=== PATIENT | female | born 1965 | race Caucasian/White ===

== ENCOUNTER 2023-10-29 16:23 | Emergency (ER) | payer BC ==
[~2023-10-29] VITALS: Ht 172.7 cm; Wt 109.8 kg
[2023-10-29 16:32] VITALS: TEMP 97.9
[2023-10-29 17:01] LABS: BILIRUBIN,URINE NEGATIVE (Neg); CLARITY,URINE SLIGHTLY CLOUDY (Clear); COLOR,URINE YELLOW (Yellow); GLUCOSE, URINE NEGATIVE (Neg); KETONES,URINE TRACE mg/dl (Neg); LEUKOCYTE ESTERASE ,URINE NEGATIVE (Neg); NITRITES, URINE NEGATIVE (Neg); OCCULT BLOOD,URINE NEGATIVE (Neg); PH,URINE 5.5 (4.8-8.0); PROTEIN,URINE NEGATIVE (Neg); UROBILINOGEN,URINE 0.2 E.U/dL (0.2-1.0)
[2023-10-29 17:02] LABS: UA COLLECTION TYPE CLN CATCH MIDSTREAM
[2023-10-29 17:06] LABS: SQUAMOUS EPITHELIAL CELL,UR FEW /LPF (FEW)
[2023-10-29 17:07] LABS: BACTERIA,URINE FEW /HPF (Neg); RBC,URINE 0-2 /HPF (0-2); URINE HCG NEGATIVE (NEG); WBC,URINE 0-4 /HPF (0-4)
[2023-10-29 17:29] LABS: BASOPHILS # (AUTO) 0.1 X10'3 (0-0.2); BASOPHILS % (AUTO) 1.2 % (0-1); EOSINOPHILS # (AUTO) 0.2 X10'3 (0-0.9); EOSINOPHILS % (AUTO) 2.5 % (0-6); HEMATOCRIT 43.1 % (35.0-45.0); HEMOGLOBIN 14.7 g/dl (12.0-16.0); LYMPHOCYTES # (AUTO) 2.7 X10'3 (1.1-4.8); LYMPHOCYTES % (AUTO) 34.8 % (21-51); MEAN CORPUSCULAR HEMOGLOBIN 30.2 PG (27.0-31.0); MEAN CORPUSCULAR HGB CONC 34.1 g/dL (33.0-36.5); MEAN CORPUSCULAR VOLUME 88.5 FL (78-98); MEAN PLATELET VOLUME 8.3 FL (7.4-10.4); MONOCYTES # (AUTO) 0.6 X10'3 (0-0.9); MONOCYTES % (AUTO) 7.4 % (2-12); NEUTROPHILS # (AUTO) 4.2 X10'3 (1.8-7.7); NEUTROPHILS % (AUTO) 54.1 % (42-75); PLATELET COUNT 239 X10'3 (140-440); RED BLOOD COUNT 4.87 X10'6 (4.20-5.60); RED CELL DISTRIBUTION WIDTH 14.1 % (11.5-14.5); WHITE BLOOD COUNT 7.8 X10'3 (4.5-11.0)
[2023-10-29 17:42] LABS: ALANINE AMINOTRANSFERASE 61 U/L (12-78); ALBUMIN 3.8 G/DL (3.4-5.0); ALBUMIN/GLOBULIN RATIO 1.2 (1.1-1.5); ALKALINE PHOSPHATASE 79 IU/L (46-116); ANION GAP 12 (8-16); ASPARTATE AMINO TRANSFERASE 25 U/L (10-37); BILIRUBIN,TOTAL 0.3 MG/DL (0.1-1.0); BLOOD UREA NITROGEN 24 MG/DL (7-18); BUN/CREATININE RATIO 27.9 (10.0-20.0); CHLORIDE 106 MMOL/L (99-107); CREATININE 0.86 MG/DL (0.40-0.90); GLUCOSE 94 MG/DL (70-104); LIPASE 85 U/L (16-77); POTASSIUM 4.1 MMOL/L (3.5-5.1); SODIUM 142 MMOL/L (135-145); TOTAL CARBON DIOXIDE 24.5 MMOL/L (24-32); TOTAL PROTEIN 7.1 G/DL (6.4-8.2); eCRCL 71 ML/MIN; eGFR 68 ML/MIN
[2023-10-29] MEDS ORDERED: LIDO700A32 TOP (18:21)
[2023-10-29] MEDS ORDERED: MELO-100 PO (18:21)
[2023-10-29] MEDS: ketorolac trometh inj. 60 MG/2 ML VIAL IM ONE (19:03)
[2023-10-29 19:23] VITALS: BP 146/85; PULSE 76; RESP 18; O2SAT 93
== END 2023-10-29 19:25 | disposition home or self-care (01) ==
LOC: ER 16:23
DX: M54.59 Other low back pain (principal)
CPT/HCPCS: 36415; 80053; 81001; 81025; 83690; 85025; 96372; 99283; J1885

== ENCOUNTER 2023-10-30 08:00 | Emergency (ER) | payer BC ==
[~2023-10-30] VITALS: Ht 172.7 cm; Wt 108.2 kg
[~2023-10-30 08:00] MED LIST: LIDO700A32 TOP; MELO-100 PO
[2023-10-30 08:38] VITALS: BP 143/64; PULSE 75; RESP 16; TEMP 98.3; O2SAT 98
== END 2023-10-30 08:39 | disposition home or self-care (01) ==
LOC: ER 08:01
DX: S39.012A Strain of muscle, fascia and tendon of lower back, initial encounter (principal); G89.29 Other chronic pain; M54.9 Dorsalgia, unspecified; Z88.5 Allergy status to narcotic agent; Z79.899 Other long term (current) drug therapy; X58.XXXA Exposure to other specified factors, initial encounter; Y93.89 Activity, other specified; Y92.89 Other specified places as the place of occurrence of the external cause; Y99.8 Other external cause status
CPT/HCPCS: 99281

== ENCOUNTER 2025-03-14 09:09 | Emergency (ER) | payer BC ==
[~2025-03-14] VITALS: Ht 170.2 cm; Wt 109.7 kg
[~2025-03-14 09:09] MED LIST changes: +LIDO-52 TOP; -LIDO700A32 TOP
--- NOTE | 2025-03-14 09:21 | Physician Documentation ---
History of Present Illness ~ Chief Complaint: Arm Pain Stated Complaint: L ARM NUMBNESS Time Seen by MD: 09:24 HPI 59-year-old female with no medical history other than pre diabetes presents to the emergency department reporting that she woke up with left arm pain that yaneli ears to originate of the shoulder in his radiating down the arm. Does admit to some shortness of breath, but notes that she is anxious. Family history of coronary artery disease including heart attack and mother and grandmother. No recent injury to the left arm or shoulder. Pain is reproducible, worse with movement. PATIENT DOES DESCRIBE SOME SHORTNESS A BREATH. Chief Complaint: Left scapula pain Caveat: None Independent Historians: None History of Present Illness: Patient is a 59-year-old woman who comes in complaining of left scapular pain that woke her from sleep at 6:00 a.m.. Pain is sharp. Pain is worse with movement. No chest pain. No pain in the shoulder. Patient has tingling in the left fingers. Pain is currently 6/10. Patient has some pain that radiates down the left paraspinal muscles. Review of systems: All systems were reviewed and are negative except for what is indicated in the history of present illness. Past Medical History: Past Surgical History: Noncontributory Social History: Former smoker quit 10 years ago, no alcohol use, no drug use Medications: Reviewed as documented Nursing Notes Allergies: Reviewed as documented in Nursing Notes Tetanus within 5 years: No Medication Reconciliation Allergies: Coded Allergies: codeine (Verified Allergy, Mild, 03/14/25) Uncoded Allergies: CLAM (Allergy, Unknown, 10/29/23) Scheduled Lidocaine (Lidoderm), 1 PATCH TOP DAILY Meloxicam* (Meloxicam*), 1 TAB PO DAILY Past Medical History Past Medical History: Chronic Back Pain Past Surgical History: noncontributory Lives In: Home Review of Systems ROS As stated above in the HPI, otherwise all systems are reviewed and negative. Physical Exam Vital Signs: RN Vital Signs have been reviewed: Yes, Temperature: 97.5, Source: Temporal, Heart Rate: 69, Respiratory Rate: 18, BP: 122/86, Pulse Oximetry: 96, Weight: 109.650 Oxygen Flow Rate: 0 Physical Exam General: Alert, no apparent distress. Neck: Full range of motion. Respiratory: Lungs clear, no respiratory distress. Chest: No accessory muscle use. Cardiovascular: Regular rate and rhythm, no murmurs. Gastrointestinal: Soft, nontender, nondistended. Bowels sounds present. Extremities: Mildly reduced and painful ROM left shoulder. TTP lateral left trapezius musculature. Neurologic: Oriented x4. Psychiatric: Normal mood and affect. Skin: Normal color, warm and dry. No edema, no ecchymosis. General Appearance: No distress HEENT: Normal OP, moist oral mucosa, PERRL, EOMI Neck: supple, normal ROM, trachea midline Pulmonary: No respiratory distress, CTA, BS equal Cardiac: RRR, no murmur, rub or gallop, Back: Some left rhomboid and paraspinal muscle tenderness. Left scapula itself is nontender. Shoulder left is nontender. Normal range of motion of the left shoulder with no pain in the shoulder but pain in the scapula and upper back. Extremities: normal ROM, no swelling, non-tender Skin: intact, dry, warm, no rashes Neuro: AAOx3, speech is clear, no focal motor weakness Psych: normal affect, good eye contact, no apparent hallucination, normal speech Progress Results/Orders Results/Orders Orders - AIDAN VELASCO MD Hs Troponin I W Calculations (03/14/25 12:09) Hs Troponin I W Calculations (03/14/25 13:09) Chest,Single View (03/14/25 10:50) Completed Orders - AIDAN VELASCO MD Cbc/Diff (03/14/25 10:09) BMP (03/14/25 10:09) Hs Troponin I W Calculations (03/14/25 10:09) Chest,Single View (03/14/25 10:50) Vital Signs 03/14/25 03/14/25 03/14/25 03/14/25 09:12 09:45 10:15 11:09 Temp 97.5 97.5 Pulse 69 61 63 Resp 18 12 13 12 B/P (MAP) 122/86 123/79 (94) 127/83 (98) Pulse Ox 96 98 96 O2 Flow Rate 0 0 0 Laboratory Tests Test 03/14/25 09:40 White Blood Count 5.1 Red Blood Count 4.85 Hemoglobin 14.5 Hematocrit 42.8 Mean Corpuscular Volume 88.2 Mean Corpuscular Hemoglobin 29.8 Mean Corpuscular Hemoglobin Concent 33.8 Red Cell Distribution Width 14.1 Platelet Count 242 Mean Platelet Volume 9.5 Neutrophils (%) (Auto) 43.9 Lymphocytes (%) (Auto) 41.2 Monocytes (%) (Auto) 8.5 Eosinophils (%) (Auto) 4.7 Basophils (%) (Auto) 1.7 H Neutrophils # (Auto) 2.2 Lymphocytes # (Auto) 2.1 Monocytes # (Auto) 0.4 Eosinophils # (Auto) 0.2 Basophils # (Auto) 0.1 CBC Comment Sodium Level 137 Potassium Level 4.0 Chloride Level 105 Carbon Dioxide Level 25.2 Anion Gap 7 L Blood Urea Nitrogen 16 Creatinine 0.81 Estimated GFR/1.73 m2 72 BUN/Creatinine Ratio 19.8 Glucose Level 108 H Calcium Level 8.6 Troponin I High Sensitivity 6 Albumin 3.7 Chemistry Comments Medical Decision Making Findings Differential diagnosis includes but is not limited to: Acute coronary syndrome, musculoskeletal pain, myofascial pain EKG independent interpretation: Performed at 9:21 a.m.. Normal sinus rhythm, heart rate 65, normal axis, normal ST segments Chest x-ray, single view, indication: Shortness a breath Independent interpretation: Lungs are clear, normal mediastinum, normal cardiac silhouette, bones appear normal. No acute cardiopulmonary process The shoulder x-rays, two views, indication: Pain Impression: Normal soft tissues, normal left lung apex, bones appear normal with no evidence of fracture dislocation or calcific tendinopathy Laboratory data independent interpretation: CBC: NORMAL CMP: NORMAL TROPONIN: 6 Emergency department course/medical decision-making: PATIENT'S PAIN IS MOST CONSISTENT WITH A MUSCULOSKELETAL CAUSE. THERE WAS NO EVIDENCE AT THIS IS AN ACUTE CORONARY SYNDROME. NO ISCHEMIC CHANGES ON THE EKG. LAB WORK IS UNREMARKABLE. NORMAL TROPONIN. PATIENT IS REASSURED. PATIENT IS GIVEN TORADOL 15 MG IM FOR HER PAIN. PAIN IS REPRODUCIBLE ON EXAM WITH RANGE OF MOTION OF THE LEFT SHOULDER. TEST RESULTS, TREATMENT PLAN AND ALL OF THE ABOVE DISCUSSED WITH THE PATIENT. RECOMMEND ADVIL AND TYLENOL FOR PAIN. Departure Time of Disposition: 11:41 Impression: Primary Impression: Musculoskeletal pain Discharge Instructions: Musculoskeletal Pain Additional Instructions: YOUR PAIN APPEARS TO BE MUSCULOSKELETAL AND/OR MYOFASCIAL IN CAUSE. FOLLOW UP WITH YOUR PRIMARY CARE DOCTOR IF SYMPTOMS PERSIST. TAKE ADVIL AND TYLENOL FOR PAIN. Referrals: NO PRIMARY CARE PROVIDER (PCP) Prescriptions Lidocaine (Lidocaine Pain Relief) 4 % Adh..patch 1 PATCH TOP BID for 30 Days, #30 PATCH 0 Refills Prov: AIDAN VELASCO MD 03/14/25 Education Educated: Patient, Family Educated regarding: diagnosis, treatment Signature Scribe Signature: x No scribe Attestation: The note accurately reflects work and decisions made by me.Vanesa Mayorga NP 03/14/25 09:20 No scribVANESA Gillette NP Mar 14, 2025 09:21 AIDAN VELASCO MD Mar 14, 2025 10:44
--- NOTE | 2025-03-14 09:22 | ELECTROCARDIOGRAPH REPORT ---
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 Ayan Fermin Measurements Intervals [place] Rate: 65 P: 38 MT: 181 QRS: 6 QRSD: 86 T: 43 QT: 420 QTc: 437 Interpretive Statements Sinus rhythm Electronically Signed On 03-14-2025 22:27:[address] Ayan Fermin Please click the below link to view image of tracing.
--- NOTE | 2025-03-14 10:09 | RADIOLOGY REPORT ---
DI SHOULDER, COMPLETE (MIN 2 VWS) INDICATION: Shoulder Pain TECHNICAL DATA: 2 views were obtained of the left shoulder. COMPARISON: None FINDINGS: There is no fracture or focal bone abnormality. The glenohumeral joint is normally maintained. The ac romioclavicular joint appears normal. The humeral head is not high riding. Adjacent soft tissues are within normal limits. IMPRESSION: No acute fracture or dislocation of the left shoulder.
[2025-03-14 10:47] LABS: MEAN PLATELET VOLUME 9.5 FL (7.4-10.4); RED CELL DISTRIBUTION WIDTH 14.1 % (11.5-14.5)
[2025-03-14 11:00] LABS: CREATININE 0.81 MG/DL (0.40-0.90); TOTAL CARBON DIOXIDE 25.2 MMOL/L (24-32); eCRCL 72 ML/MIN; eGFR 72 ML/MIN
--- NOTE | 2025-03-14 11:42 | RADIOLOGY REPORT ---
DI CHEST,SINGLE VIEW, HISTORY: CP COMPARISON: None None TECHNICAL DATA: 1 view of the chest was obtained. FINDINGS: Lines and tubes: None Cardiomediastinal silhouette: normal Pulmonary vasculature: normal Lung expansion: normal Lung airspace: normal Lung interstitium: normal Pleura: normal Pneumothorax: no Bones: Unremarkable Other: no IMPRESSION: No acute intrathoracic abnormality.
[2025-03-14] MEDS ORDERED: LIDO1ADH67 TOP (11:49)
[2025-03-14] MEDS: ketorolac trometh 15mg/ml vial 15 MG/ML ML IM ONE (11:55)
[2025-03-14 12:08] VITALS: BP 131/72; PULSE 64; RESP 13; TEMP 97.5; O2SAT 98
== END 2025-03-14 12:16 | disposition home or self-care (01) ==
LOC: ER 09:10
DX: M25.512 Pain in left shoulder (principal); M79.602 Pain in left arm; R06.02 Shortness of breath; R20.2 Paresthesia of skin; Z88.5 Allergy status to narcotic agent; Z87.891 Personal history of nicotine dependence
CPT/HCPCS: 36415; 71045; 73030; 80048; 84484; 85025; 93005; 96372; 99285; J1885